=== PATIENT | male | born 1945 | race Caucasian/White ===

== ENCOUNTER 2019-01-13 08:28 | Inpatient (IN) ==
--- NOTE | 2019-01-01 15:04 | PAT Medication Instructions ---
Medication Instructions Date of Service January 01, 2019 Home Medications naproxen sodium 220 mg capsule 220 mg PO BID PRN tamsulosin 0.4 mg capsule 0.4 mg PO HS ascorbic acid (vitamin C) [Vitamin C] 1 g PO DAILY levothyroxine 25 mcg PO QAM multivitamin 1 tab PO DAILY phenazopyridine [Azo Urinary Pain Relief] 95 mg PO TID PRN ASK your surgeon for instructions naproxen sodium 220 mg capsule 220 mg PO BID PRN phenazopyridine [Azo Urinary Pain Relief] 95 mg PO TID PRN DO NOT take the morning of surgery ascorbic acid (vitamin C) [Vitamin C] 1 g PO DAILY multivitamin 1 tab PO DAILY Take morning of surgery With a small sip of water, OTHERWISE NOTHING TO EAT OR DRINK AFTER MIDNIGHT: levothyroxine 25 mcg PO QAM Take evening before surgery tamsulosin 0.4 mg capsule 0.4 mg PO HS Other Notes If you have any questions please call us at [phone] or [phone] or [phone] or [phone]
--- NOTE | 2019-01-06 09:51 | Anesthesiology Consultation ---
Date of Service January 06, 2019 Assessment & Plan (1) Encounter for pre-operative examination: Chart Review Chart Review: Acceptable Risk for Surgery and Patient seen in Pre Admission Testing Teaching & Discussion Instructed NPO after midnight before surgery, except medications with 15 cc of water. Medication instructions provided according to the PAT guidelines. History Surgery Operation Date: 01/13/19 10:55 Proposed Procedures p Transurethral Resection of the Prostate, Possible Bladder Biopsies - Andrew Murillo, Height/Weight Height: 6 ft 3 in Weight: 117.4 kg Allergies Allergy/AdvReac Type Severity Reaction Status Date / Time Penicillins Allergy Mild Rash Verified 01/06/19 11:16 Sulfa (Sulfonamide Allergy Mild Rash Verified 01/06/19 11:16 Antibiotics) Medications Home Medications Medication Instructions Recorded Confirmed Last Taken naproxen sodium 220 mg capsule 220 mg PO BID PRN 12/27/18 01/06/19 Unknown tamsulosin 0.4 mg capsule 0.4 mg PO HS 12/27/18 01/06/19 Unknown ascorbic acid (vitamin C) [Vitamin 1 g PO DAILY 12/31/18 01/06/19 Unknown C] levothyroxine 25 mcg PO QAM 12/31/18 01/06/19 Unknown multivitamin 1 tab PO DAILY 12/31/18 01/06/19 Unknown phenazopyridine [Azo Urinary Pain 95 mg PO TID PRN 12/31/18 01/06/19 Unknown Relief] Past Medical History Medical History Attention deficit disorder (ADD) BCC (basal cell carcinoma of skin) BPH (benign prostatic hyperplasia) Zepeda catheter in place Herpes simplex "SCRAPED OFF CORNEA" Hypothyroidism Obesity Post traumatic stress disorder Exercise / Class Metabolic Activity II 4-5 Yardwork/Stairs/Walk up hill (Denies CP or SOB with 1 FOS, does multiple times daily) Past Family History Family History Mother Diabetes Cancer Family hx of colon cancer Past Surgical History Surgical History History of cardiac cath A COUPLE YEARS AGO AT [facility]/"NO PROBLEMS". DONE FOR FALSE + STRESS TEST. History of colonoscopy History of tonsillectomy and adenoidectomy Hx of transurethral resection of prostate Past Anesthesia History No Hx of Anesthesia Complications and No Family Hx of Anesthesia Complications History of PONV No Hx of PONV and No Hx of Motion Sickness Social History Smoking Status: Former smoker tobacco type: cigarettes Do You Dip or Chew Tobacco: No Smoking End Date: QUIT OVER 50 YEARS AGO Hx Alcohol Use: Yes Alcohol type: wine alcohol intake frequency: a few times a month Hx Substance Use: No substance use type: does not use Review of Systems Pt denies any recent chest pain, shortness of breath, palpitations, cough, fever or URI. +pain from zepeda catheter (to have removed at surgeon's office today) Physical Exam Vital Signs BP: 121/71 P: 111 SPO2: 94% T: 97.8 R: 18 Constitutional Visibly in pain, cannot sit down. ENMT Mouth: + dental restorations (Upper L temporary, to be filled prior to surgery, will be perm. crown.); no chipped teeth and no loose teeth Thyromental Distance: < 3.5 Finger Breadths (3) Mallampati Class: II Neck normal visual inspection; neck extension not limited Respiratory normal respiratory effort Auscultation: lungs clear to auscultation bilaterally Cardiovascular Rate/Rhythm: regular rhythm and + tachycardic Heart Sounds: no murmur Extremities: no edema Testing Laboratory Results Urine Color Yellow 01/06/19 Unknown Urine Appearance Clear (Clear) 01/06/19 Unknown Urine pH 5.0 (4.5-7.5) 01/06/19 Unknown Ur Specific Provencal > 1.045 (1.000-1.030) H 01/06/19 Unknown Urine Protein 1+ (Negative) H 01/06/19 Unknown Urine Glucose (UA) Negative (Negative) 01/06/19 Unknown Urine Ketones Negative (Negative) 01/06/19 Unknown Urine Nitrite Negative (Negative) 01/06/19 Unknown Ur Leukocyte Esterase Trace (Negative) H 01/06/19 Unknown Urine WBC (Auto) 5-10 /hpf (0-5) H 01/06/19 Unknown Urine RBC (Auto) 5-10 /hpf (0-4) H 01/06/19 Unknown U Hyaline Cast (Auto) 5-10 /lpf (0-5) H 01/06/19 Unknown U Epithel Cells (Auto) 10-20 /lpf (0-5) H 01/06/19 Unknown Urine Bacteria (Auto) Negative (Negative) 01/06/19 Unknown 01/06/19 Unknown Urine Culture - Preliminary Urine,Clean Catch Staphylococcus species 12/24/18 WBC: 6.2 H/H: 14.5/42.4 PLATELETS: 249 SODIUM: 138 POTASSIUM: 3.7 CHLORIDE: 107 CO2: 21 BUN: 19 CREATININE: 0.98 GLUCOSE: 153 Electrocardiogram Date: 01/06/19 Findings: + ST @ (102bpm) Chest X-Ray Date: 01/06/19 COMPARISON: CT abdomen and pelvis 01/06/2019 TECHNIQUE: PA and lateral views of the chest FINDINGS: 1.1 cm calcified granuloma of the left midlung. Additional subcentimeter nodules of the left lung base are better seen on CT abdomen and pelvis study of same day . Cardiomediastinal and hilar silhouettes are within normal limits. There is no pneumothorax, pleural effusion, focal airspace consolidation or overt pulmonary edema. The lungs are mildly hyperinflated. Mild degenerative changes of the shoulders and spine. IMPRESSION: Prior granulomatous disease without acute process.
[2019-01-06 11:04] LABS: Appearance Urine Clear (Clear); Bacteria Urine Automated Negative (Negative); Bilirubin Urine Negative (Negative); Blood Urine 2+ (Negative); Color Urine Yellow; Glucose Urine UA Negative (Negative); Ketones Urine Negative (Negative); Leukocyte Esterase Urine Trace (Negative); Nitrite Urine Negative (Negative); Protein Urine 1+ (Negative); Specific Gravity Urine > 1.045 (1.000-1.030); Urobilinogen Urine Negative (Negative)
--- NOTE | 2019-01-06 11:18 | XRay Report ---
XR chest Pre-admission PA/Lat HISTORY: 73 years-old Male pat preoperative exam. No acute chest complaints COMPARISON: CT abdomen and pelvis 01/06/2019 TECHNIQUE: PA and lateral views of the chest FINDINGS: 1.1 cm calcified granuloma of the left midlung. Additional subcentimeter nodules of the left lung bas e are better seen on CT abdomen and pelvis study of same day. Cardiomediastinal and hilar silhouettes are within normal limits. There is no pneumothorax, pleural effusion, focal airspace consolidation o r overt pulmonary edema. The lungs are mildly hyperinflated. Mild degenerative changes of the shoulde rs and spine. IMPRESSION: Prior granulomatous disease without acute process. The above report was generated using voice recognition software. It may contain grammatical, syntax o r spelling errors. Electronically signed by: Charly Urrutia M.D. 01/06/2019 11:17 AM
[~2019-01-13 08:28] MED LIST: *CEFAZOLIN*ALLERGY NOTED TO ORDERED MEDICATION SCH; CEFAZOLIN 3000MG 65 ML IV SCH; LR 15ML/HR IV SCH
--- NOTE | 2019-01-13 09:05 | History & Physical Bridge Note ---
Date of Service January 13, 2019 History & Physical Bridge Note I have examined the patient, reviewed the History & Physical and in the interval since the performance of the History & Physical I have noted the following changes of clinical significance: no changes noted
[2019-01-13] MEDS ORDERED: PROPOFOL IV EMULSION 10 MG/ML 20 ML VIAL IV ONE (09:51)
[2019-01-13] MEDS ORDERED: fentaNYL citrate 100 MCG/2 ML VIAL ONE ×3 (09:51→12:52)
[2019-01-13] MEDS ORDERED: ONDANSETRON INJ 2 MG/ML 2 ML VIAL ONE (09:51)
[2019-01-13] MEDS ORDERED: LIDOCAINE HCL 2% 2 ML VIAL/AMP(20MG/ML) INFIL ONE (09:51)
[2019-01-13] MEDS ORDERED: ePHEDrine sulfate 50 MG/ML AMP IV PRN (10:13)
[2019-01-13] MEDS ORDERED: ONDANSETRON INJ 2 MG/ML 2 ML VIAL IV PRN (10:13)
[2019-01-13] MEDS ORDERED: ATROPINE SULFATE 0.1 MG/ML 10ML SYR IV PRN (10:13)
[2019-01-13] MEDS ORDERED: CEFAZOLIN 3000MG/72.5 ML BAG IV ONE (10:49)
[2019-01-13] MEDS ORDERED: ePHEDrine sulfate 50 MG/ML SYR ONE (11:24)
[2019-01-13] MEDS ORDERED: BELLADONNA/OPIUM SUPP 60 MG SUPP PR PRN (12:37)
[2019-01-13] MEDS ORDERED: BELLADONNA/OPIUM SUPP 60 MG SUPP PR ONE (12:47)
--- NOTE | 2019-01-13 12:56 | Operative Report ---
PG Post Operative Report Pre & Post Diagnosis Operation Date: 01/13/19 10:55 Pre-Op Diagnosis: Bladder Mass, Urinary Retention Post-Op Diagnosis: Bladder Mass, Urinary Retention I identified the patient and participated in the time-out.: Yes Procedure Operation Date: 01/13/19 10:55 Actual Procedures p Transurethral Resection of the Prostate,(Not Applicable) - Andrew Murillo DO Surgeon Andrew Murillo, II, DO Truck [employer] Apprentice None Estimated Blood Loss 10 Findings Consistent with Post-Op Diagnosis Extremely Large Prostate with Massive median lobe with calcification of lobe and obstruction. Specimens Prostate adenoma. Drains 22Fr Hematuria Catheter Anesthesia Type General Complications none Disposition Disposition: Recovery Room Indications Patient with obstruction due to prostate enlargement. Risks and benefits discussed at length. Description of Procedure Patient was consented and brought back to the operating room. Patient was placed under anesthesia in the supine position and moved to the dorsal lithotomy position. Patient was prepped and draped in the regular sterile fashion. A time out was completed. A 30degree Cystoscope was placed into the bladder and the entire bladder was examined. The UO's were identified as well as the bladder neck, trigone, dome, and the other important landmarks. The prostatic urethra and large lobes/adenoma was assessed and the veru and bladder neck identified and area/size was assessed. The resection scope was placed and the fine bipolar loop was selected. The prostate median lobe was massive and had large calcifications coming off of areas with very large varicosity Starting at the 5 and 7 o'clock positions, a channel was created from bladder neck to the veru. The median lobe was then resected. A massive amount of tissue was resected. The lateral lobes were then resected moving from 1 to 5 oclock and then 11 to 7 oclock. The Specimen was removed and sent for analysis. The resection bed and any bleeding areas were fulgurated/cauterized and the entire area inspected. All bleeding was controlled. The bladder was inspected a final time. The bladder was emptied and irrigated. All specimen and debris was removed. The scope was removed with the bladder partially full. A catheter was placed and balloon elevated. This was easily irrigated. The patient was cleaned, aroused from anesthesia, and transferred to the pacu in stable condition having tolerated the procedure well with no complications. I was present and participated in all aspects of the procedure. The patient will be monitored in the PACU until transferred. Due to the massive size of the prostate, this will likely need a repeat procedure to reassess. Will await pathology. I attest to the content of the Intraoperative Record and any orders documented therein. Any exceptions are noted below.
[2019-01-13] MEDS: fentaNYL citrate 100 MCG/2 ML VIAL IV PRN ×2 (13:08→13:13)
[2019-01-13] MEDS ORDERED: OXYCODONE HCL IR 5 MG TAB (IMMEDIATE RELEASE) PO PRN (14:07)
[2019-01-13] MEDS ORDERED: MoRPHine SULFATE 2 MG/ML CARP IV PRN (14:07)
[2019-01-13] MEDS ORDERED: NAPROXEN 250 MG TAB PO PRN (14:20)
[2019-01-13] MEDS ORDERED: PHENAZOPYRIDINE HCL 100 MG TAB PO PRN (14:22)
[2019-01-13 14:33] LABS: Basophils # (auto) 0.03 K/uL (0-0.2); Basophils % (auto) 0.6 %; Eosinophils # (auto) 0.09 K/uL (0-0.5); Eosinophils % (auto) 1.7 %; Hematocrit (blood only) 38.3 % (42-52); Hemoglobin 12.7 g/dL (14.0-18.0); Immature Granulocytes # (auto) 0.01 K/uL (0.00-0.02); Immature Granulocytes % (auto) 0.2 %; Lymphocytes # (auto) 1.16 K/uL (1.2-3.4); Lymphocytes % (auto) 21.4 %; Mean Corpuscular Hemoglobin 29.1 pg (25-34); Mean Corpuscular Hgb Conc 33.2 g/dL (32-36); Mean Corpuscular Volume 87.6 fL (80-100); Mean Platelet Volume 9.6 fL (7.4-10.4); Monocytes # (auto) 0.58 K/uL (0.11-0.59); Monocytes % (auto) 10.7 %; Neutrophils # (auto) 3.54 K/uL (1.4-6.5); Neutrophils % (auto) 65.4 %; Platelet Count 204 K/uL (130-400); RDW Coefficient of Variation 13.3 % (11.5-14.5); RDW Standard Deviation 42.8 fL (36.4-46.3); Red Blood Count 4.37 M/uL (4.7-6.1); White Blood Count 5.41 K/uL (4.8-10.8)
--- NOTE | 2019-01-13 14:33 | Anesthesiology Progress Note ---
Date of Service January 13, 2019 Anesthesia Post Procedure Vital Signs Vital Signs: Temp Pulse Pulse Resp BP BP Pulse Ox 01/13/19 14:32 36.5 C 76 16 162/81 H 98 01/13/19 14:08 36.5 C 77 18 L 18 143/73 H 95 01/13/19 13:35 36.6 C 77 16 145/70 H 96 01/13/19 13:25 36.6 C 72 16 127/69 96 01/13/19 13:15 77 16 131/70 94 01/13/19 13:05 77 16 135/72 99 01/13/19 12:59 36.4 C L 82 16 126/72 98 01/13/19 09:30 37.1 C 102 H 18 171/92 H 6 L Pain Intensity Bilateral Groin: Pain Intensity: 3 Transfer of Care Handoff Completed per policy Notes Mental Status: alert / awake / arousable Patient Amnestic to Procedure: Yes Nausea / Vomiting: adequately controlled Pain: adequately controlled Airway Patency, RR, SpO2: stable & adequate BP & HR: stable & adequate Hydration State: stable & adequate Anesthetic Complications: no major complications apparent
[2019-01-13 15:02] LABS: Albumin Level 3.2 gm/dl (3.4-5.0); BUN Creatinine Ratio 15.1 (10-20); Calcium 8.4 mg/dl (8.5-10.1); Creatinine Clr Calc Pharmacy 89.5 ml/min; Est GFR (African American) 84.1; Est GFR (Non-African American) 72.6; Potassium 4.5 mmol/L (3.5-5.1)
[2019-01-13 15:05] LABS: Bilirubin,Total 0.8 mg/dl (0.2-1); Globulin 3.2 gm/dl (2.5-4.0); Total Protein 6.4 gm/dl (6.4-8.2)
[2019-01-13] MEDS: SODIUM CHLORIDE 0.9% 1000ML 1,000 ML IV SCH (15:40)
[2019-01-13] MEDS: CEFAZOLIN 2000MG 2,000 MG/15 ML SYR IV SCH (18:36)
[2019-01-13] MEDS: TAMSULOSIN HCL 0.4 MG CAP PO SCH (20:43)
[2019-01-14] MEDS: SODIUM CHLORIDE 0.9% 1000ML 1,000 ML IV SCH ×2 (00:42→11:12)
[2019-01-14] MEDS: CEFAZOLIN 2000MG 2,000 MG/15 ML SYR IV SCH ×2 (03:47→11:12)
[2019-01-14] MEDS: LEVOTHYROXINE SODIUM 25 MCG TABLET PO SCH (06:23)
--- NOTE | 2019-01-14 08:27 | Anesthesiology Progress Note ---
Date of Service January 14, 2019 Anesthesia Post Procedure Vital Signs Vital Signs: Temp Pulse Pulse Resp BP BP Pulse Ox 01/14/19 06:56 37 C 80 18 151/76 H 91 01/14/19 03:50 36.9 C 81 16 151/77 H 96 01/13/19 23:20 36.9 C 77 16 158/72 H 93 01/13/19 17:10 36.8 C 75 17 122/69 96 01/13/19 16:05 36.9 C 74 18 113/67 97 01/13/19 15:05 36.5 C 76 17 145/78 H 95 01/13/19 14:32 36.5 C 76 16 162/81 H 98 01/13/19 14:08 36.5 C 77 18 L 18 143/73 H 95 01/13/19 13:35 36.6 C 77 16 145/70 H 96 01/13/19 13:25 36.6 C 72 16 127/69 96 01/13/19 13:15 77 16 131/70 94 01/13/19 13:05 77 16 135/72 99 01/13/19 12:59 36.4 C L 82 16 126/72 98 01/13/19 09:30 37.1 C 102 H 18 171/92 H 6 L Pulse Ox 01/14/19 06:56 01/14/19 03:50 01/13/19 23:20 93 01/13/19 17:10 01/13/19 16:05 01/13/19 15:05 01/13/19 14:32 01/13/19 14:08 01/13/19 13:35 01/13/19 13:25 01/13/19 13:15 01/13/19 13:05 01/13/19 12:59 01/13/19 09:30 Notes Mental Status: alert / awake / arousable and participated in evaluation Patient Amnestic to Procedure: Yes Nausea / Vomiting: adequately controlled Pain: adequately controlled Airway Patency, RR, SpO2: stable & adequate BP & HR: stable & adequate Hydration State: stable & adequate Anesthetic Complications: no major complications apparent and Pt Satisfied with anesthetic care
[2019-01-14] MEDS: MULTIVITAMIN TAB PO SCH (08:48)
[2019-01-14] MEDS: ASCORBIC ACID 500 MG TAB PO SCH (08:49)
--- NOTE | 2019-01-14 09:02 | Urology Progress Note ---
Date of Service January 14, 2019 Assessment & Plan (1) Urinary retention due to benign prostatic hyperplasia: POD #1 s/p TURP Pt had a very large prostate, will likely need staged TURP in the future. Slowed CBI, plan to clamp around 10AM if maintains very clear then clamp at noon Continue ambulation. UPDATE: Hematuria returned with CBI clamped. Plan for hand irrigation then restart to keep urine clear to light pink. RN made aware. Will stay tonight to monitor hematuria. Plan to maintain zepeda for 10 days and followup with Dr. Murillo to discuss possible repeat procedure. Subjective POD #1 s/p TURP Very large prostate, unable to perform TURBT Doing well overnight Tolerating regular diet Some suprapubic pressure but otherwise doing well VSS, H/H stable Review of Systems Review of Systems: All systems reviewed & are unremarkable except as noted in HPI & below Physical Exam Physical Exam: A&Ox3 RRR ABd soft nontender CBI running slow, light pink, no clots Results & Data Vital Signs (Past 12 Hours) Vital Signs Temp Pulse Resp BP Pulse Ox Pulse Ox 01/14/19 06:56 37 C 80 18 151/76 H 91 01/14/19 03:50 36.9 C 81 16 151/77 H 96 01/13/19 23:20 36.9 C 77 16 158/72 H 93 93 PG Care Time/CCT Total # of Minutes Spent Total Time Spent with Patient: Total time spent is greater than 50% in coordination of care (as documented) at patient's floor/unit and/or counseling patient:
[2019-01-14] MEDS ORDERED: BELLADONNA/OPIUM SUPP 60 MG SUPP PR PRN (13:43)
[2019-01-14] MEDS: TAMSULOSIN HCL 0.4 MG CAP PO SCH (19:41)
[2019-01-15] MEDS: SODIUM CHLORIDE 0.9% 1000ML 1,000 ML IV SCH ×2 (00:10→07:57)
[2019-01-15] MEDS: LEVOTHYROXINE SODIUM 25 MCG TABLET PO SCH (06:16)
--- NOTE | 2019-01-15 08:06 | Urology Progress Note ---
Date of Service January 15, 2019 Assessment & Plan (1) Urinary retention due to benign prostatic hyperplasia: 73yo M POD #2 s/p TURP with Dr. Murillo Doing much better today Will add oxybutynin for bladder spasms, pt understands to stop 2-3 days prior to outpatient TOV. Clinical progression and discharge instructions reviewed. Okay for discharge around lunchtime to allow time to coordinate with ride. Subjective POD #2 s/p TURP with Dr. Murillo. CBI running very slow overnight without issue. Urine now clear, yellow. Pt able to ambulate, tolerate regular diet Does acknowledge some "bladder spasms" with eating, otherwise tolerating catether well. VSS Review of Systems Review of Systems: All systems reviewed & are unremarkable except as noted in HPI & below Physical Exam Physical Exam: A&Ox3 RRR abd soft urine draining clear yellow - slow CBI Results & Data Vital Signs (Past 12 Hours) Vital Signs Temp Pulse Resp BP Pulse Ox 01/14/19 23:25 37.4 C 98 H 16 161/84 H 93 PG Care Time/CCT Total # of Minutes Spent Total Time Spent with Patient: Total time spent is greater than 50% in coordination of care (as documented) at patient's floor/unit and/or counseling patient:
[2019-01-15] MEDS: MULTIVITAMIN TAB PO SCH (08:49)
[2019-01-15] MEDS: ASCORBIC ACID 500 MG TAB PO SCH (08:49)
[2019-01-15] MEDS ORDERED: OXYBUTYNIN CHLORIDE 5 MG TAB PO PRN (09:45)
== END 2019-01-15 11:30 | disposition home or self-care (01) | DRG 714 ==
LOC: 3N 08:28 → ASU 08:28